=== PATIENT | female | born 1970 | race Caucasian/White ===

== ENCOUNTER 2023-03-01 12:01 | Inpatient (IN) | payer OTHER ==
[~2023-03-01] VITALS: Ht 165.1 cm; Wt 92.0 kg
[2023-03-01] MEDS ORDERED: SODIUM CHLORIDE 0.9% 1,000 ML IV ONE (13:00)
[2023-03-01] MEDS ORDERED: KETOROLAC TROMETHAMINE 30 MG/ML VIAL IVP ONE (13:00)
[2023-03-01 13:04] LABS: BASOPHILS % (AUTO) 0.2 % (0.0-2.0); EOSINOPHILS % (AUTO) 0.3 % (1.0-6.0); HEMOGLOBIN 10.8 g/dL (12.0-16.0); LYMPHOCYTES # (AUTO) 1.2 K/uL (1.0-4.8); LYMPHOCYTES % (AUTO) 9.5 % (22.0-44.0); MEAN CORPUSCULAR HGB CONC 33.6 G/dL (31.0-37.0); MEAN CORPUSCULAR VOLUME 101 fL (80-100); MONOCYTES # (AUTO) 0.6 K/uL (0.1-1.0); MONOCYTES % (AUTO) 5.1 % (2.0-9.0); NEUTROPHILS # (AUTO) 10.6 K/uL (1.8-7.7); NEUTROPHILS % (AUTO) 84.9 % (40.0-70.0); PLATELET COUNT (AUTO) 328 K/uL (150-450); RED BLOOD CELL COUNT(AUTO) 3.17 MIL/uL (4.00-5.20)
[2023-03-01 13:21] LABS: ALANINE AMINOTRANSFERASE 34 U/L (12-78); ALBUMIN 2.7 g/dL (3.4-5.0); ALKALINE PHOSPHATASE 292 U/L (46-116); ANION GAP 7 mmol/L (8-16); ASPARTATE AMINOTRANSFERASE 21 U/L (15-37); BILIRUBIN,TOTAL 0.5 mg/dL (0.1-1.0); CALCIUM, TOTAL 8.6 mg/dL (8.8-10.5); CARBON DIOXIDE 39 mmol/L (22-29); CHLORIDE 96 mmol/L (98-107); CREATININE 0.81 mg/dL (0.60-1.30); GLOMERULAR FILTR. RATE CALC > 60 mL/min (>60); GLUCOSE,RANDOM 251 mg/dL (70-110); SODIUM SERUM 142 mmol/L (136-145)
[2023-03-01 13:22] LABS: POTASSIUM 2.3 mmol/L (3.5-5.1)
[2023-03-01] MEDS ORDERED: POTASSIUM CHLORIDE 20 MEQ ER TABLET PO PRN (13:30)
[2023-03-01] MEDS ORDERED: POTASSIUM CHL 10 MEQ/WATER 50 ML IV PRN ×2 (13:30→18:45)
[2023-03-01] MEDS ORDERED: ACETAMINOPHEN 325 MG TABLET PO PRN ×2 (14:45→18:45)
[2023-03-01] MEDS ORDERED: ONDANSETRON HCL 4 MG/2 ML VIAL IVP PRN ×2 (14:45→18:45)
[2023-03-01] MEDS ORDERED: BISACODYL 10 MG RECTAL RECTAL SUPPOSITORY PR PRN (18:45)
[2023-03-01] MEDS ORDERED: MAGNESIUM SULFATE 4 GM/WATER 100 ML IV PRN (18:45)
[2023-03-01] MEDS ORDERED: MAGNESIUM HYDROXIDE SUSPENSION 30 ML UDCUP PO PRN (18:45)
[2023-03-01] MEDS ORDERED: MAGNESIUM SULFATE 2 GM/WATER 50 ML IV PRN (18:45)
[2023-03-01] MEDS ORDERED: IPRATROPIUM BROMIDE 0.5 MG/2.5 ML NEB SOLUTION NEB PRN (18:45)
[2023-03-01] MEDS ORDERED: ALBUTEROL SULFATE 2.5 MG/0.5 ML NEB SOLUTION NEB PRN (18:45)
[2023-03-01] MEDS ORDERED: MAGNESIUM OXIDE 400 MG TABLET PO PRN (18:45)
[2023-03-01] MEDS ORDERED: INSU100V SQ (19:04)
[2023-03-01] MEDS ORDERED: LEVO125 PO (19:04)
[2023-03-01] MEDS ORDERED: INSLAN SQ (19:04)
[2023-03-01] MEDS ORDERED: HYDR200T83 PO (19:04)
[2023-03-01] MEDS ORDERED: HYDR20TA24 PO (19:05)
[2023-03-01] MEDS ORDERED: METO25TA3 PO (19:05)
[2023-03-01] MEDS: POTASSIUM CHLORIDE 20 MEQ ER TABLET PO PRN (20:33)
[2023-03-01] MEDS: HYDROCODONE/ACETAMINOPHEN 5-325 MG TABLET PO PRN (20:33)
[2023-03-01] MEDS: HYDROCORTISONE 10 MG TABLET PO SCH (20:35)
[2023-03-01 20:39] VITALS: BP 127/72; PULSE 59; RESP 18; TEMP 97.5
[2023-03-01] MEDS: DOCUSATE SODIUM 100 MG CAPSULE PO SCH (21:00)
[2023-03-01] MEDS ORDERED: DEXTROSE 50%-WATER 25 GM/50 ML SYRINGE IVP PRN (21:00)
[2023-03-01] MEDS: INSULIN LISPRO 100 UNITS/ML SQ PRN (21:06)
[2023-03-01 23:40] VITALS: BP 133/74; PULSE 53; RESP 18; TEMP 98.2
[2023-03-02] MEDS: HEPARIN SODIUM,PORCINE 5,000 UNITS/ML VIAL SQ SCH ×3 (00:12→17:37)
[2023-03-02] MEDS: MORPHINE SULFATE 2 MG/ML SYRINGE IVP PRN ×2 (00:28→12:10)
[2023-03-02] MEDS: ZOLPIDEM TARTRATE 5 MG TABLET PO PRN ×2 (01:40→20:28)
[2023-03-02] MEDS: POTASSIUM CHLORIDE 20 MEQ ER TABLET PO PRN ×3 (02:22→17:44)
[2023-03-02 04:11] VITALS: BP 120/64; PULSE 45; RESP 18; TEMP 98.9
[2023-03-02 05:16] LABS: GLUCOMETER DEV NAME(LOC) 5S.1B
[2023-03-02 05:16] LABS: GLUCOMETER DEV NAME(LOC) 5S.1B
[2023-03-02] MEDS: LEVOTHYROXINE SODIUM 100 MCG TABLET PO SCH (06:37)
[2023-03-02] MEDS: LEVOTHYROXINE SODIUM 75 MCG TABLET PO SCH (06:37)
[2023-03-02] MEDS: INSULIN LISPRO 100 UNITS/ML SQ PRN ×4 (06:38→20:28)
[2023-03-02 07:39] LABS: POTASSIUM 2.8 mmol/L (3.5-5.1)
[2023-03-02 07:44] VITALS: BP 133/78; PULSE 55; PULSE 71; RESP 18; TEMP 98.6
[2023-03-02] MEDS: PANTOPRAZOLE SODIUM 40 MG/VIAL IVP SCH (08:31)
[2023-03-02] MEDS: HYDROCORTISONE 10 MG TABLET PO SCH ×3 (08:32→20:21)
[2023-03-02] MEDS: HYDROCODONE/ACETAMINOPHEN 5-325 MG TABLET PO PRN (08:33)
[2023-03-02] MEDS: METOPROLOL SUCCINATE 25 MG ER TABLET PO SCH (08:49)
[2023-03-02] MEDS: DOCUSATE SODIUM 100 MG CAPSULE PO SCH ×2 (08:50→21:00)
[2023-03-02 11:13] VITALS: BP 117/71; PULSE 84; RESP 16; TEMP 98.8
[2023-03-02] MEDS: HYDROXYCHLOROQUINE SULFATE 200 MG TABLET PO SCH (12:55)
[2023-03-02 14:09] LABS: ANION GAP 3 mmol/L (8-16); CALCIUM, TOTAL 7.9 mg/dL (8.8-10.5); CARBON DIOXIDE 38 mmol/L (22-29); CHLORIDE 98 mmol/L (98-107); GLOMERULAR FILTR. RATE CALC > 60 mL/min (>60); GLUCOSE,RANDOM 211 mg/dL (70-110); POTASSIUM 3.3 mmol/L (3.5-5.1); SODIUM SERUM 139 mmol/L (136-145)
[2023-03-02 14:10] LABS: BASOPHILS % (AUTO) 0.5 % (0.0-2.0); EOSINOPHILS % (AUTO) 0.2 % (1.0-6.0); HEMATOCRIT 33.3 % (36-46); HEMOGLOBIN 11.2 g/dL (12.0-16.0); LYMPHOCYTES # (AUTO) 1.5 K/uL (1.0-4.8); LYMPHOCYTES % (AUTO) 17.4 % (22.0-44.0); MEAN CORPUSCULAR HEMOGLOBIN 34.4 pg (26.0-34.0); MEAN CORPUSCULAR HGB CONC 33.6 G/dL (31.0-37.0); MEAN CORPUSCULAR VOLUME 103 fL (80-100); MONOCYTES # (AUTO) 0.5 K/uL (0.1-1.0); MONOCYTES % (AUTO) 5.8 % (2.0-9.0); NEUTROPHILS # (AUTO) 6.7 K/uL (1.8-7.7); NEUTROPHILS % (AUTO) 76.1 % (40.0-70.0); PLATELET COUNT (AUTO) 329 K/uL (150-450); RED BLOOD CELL COUNT(AUTO) 3.25 MIL/uL (4.00-5.20); RED CELL DISTRIBUTION WIDTH 17.2 % (11.5-14.5)
[2023-03-02 14:15] LABS: ALANINE AMINOTRANSFERASE 29 U/L (12-78); ALBUMIN 2.5 g/dL (3.4-5.0); ALKALINE PHOSPHATASE 274 U/L (46-116); ASPARTATE AMINOTRANSFERASE 20 U/L (15-37); BILIRUBIN,TOTAL 0.2 mg/dL (0.1-1.0); TOTAL PROTEIN, SERUM 5.7 g/dL (6.4-8.2)
[2023-03-02 14:16] LABS: GLUCOMETER DEV NAME(LOC) 5N.2C
[2023-03-02 14:16] LABS: GLUCOMETER DEV NAME(LOC) 5S.1B
[2023-03-02] MEDS: OxyCODONE HCL 5 MG IR TABLET PO PRN (14:42)
[2023-03-02 18:26] LABS: GLUCOMETER DEV NAME(LOC) 5S.1B
[2023-03-02 19:30] VITALS: BP 133/83; PULSE 78; RESP 18; TEMP 97.9
[2023-03-02] MEDS: MORPHINE SULFATE 15 MG ER TABLET PO SCH (20:21)
[2023-03-02 21:36] LABS: GLUCOMETER DEV NAME(LOC) 5N.1C
[2023-03-03] MEDS: HEPARIN SODIUM,PORCINE 5,000 UNITS/ML VIAL SQ SCH ×4 (00:02→23:07)
[2023-03-03] MEDS: OxyCODONE HCL 5 MG IR TABLET PO PRN ×5 (00:02→22:42)
[2023-03-03 00:36] VITALS: BP 148/80; PULSE 62; RESP 20; TEMP 98.3
[2023-03-03 00:53] LABS: APPEARANCE,URINE CLEAR (CLEAR); BILIRUBIN,URINE NEGATIVE (NEGATIVE); GLUCOSE, URINE (UA) NEGATIVE (NEGATIVE); KETONES,URINE NEGATIVE (NEGATIVE); LEUKOCYTE ESTERASE ,URINE NEGATIVE (NEGATIVE); NITRATE,URINE NEGATIVE (NEGATIVE); OCCULT BLOOD,URINE NEGATIVE (NEGATIVE); PROTEIN,URINE NEGATIVE (NEGATIVE); SPECIFIC GRAVITIY, URINE 1.008 (1.003-1.030); UROBILINOGEN,URINE <=1.0 mg/dL (<=1.0)
[2023-03-03 04:00] VITALS: BP 137/76; PULSE 70; RESP 18
[2023-03-03] MEDS: LEVOTHYROXINE SODIUM 75 MCG TABLET PO SCH (05:52)
[2023-03-03] MEDS: LEVOTHYROXINE SODIUM 100 MCG TABLET PO SCH (05:52)
[2023-03-03] MEDS: INSULIN LISPRO 100 UNITS/ML SQ PRN ×2 (06:08→17:47)
[2023-03-03 07:38] VITALS: BP 137/77; PULSE 55; RESP 18; TEMP 98
[2023-03-03] MEDS: PANTOPRAZOLE SODIUM 40 MG/VIAL IVP SCH (08:58)
[2023-03-03] MEDS: MORPHINE SULFATE 15 MG ER TABLET PO SCH ×2 (09:00→20:24)
[2023-03-03] MEDS: METOPROLOL SUCCINATE 25 MG ER TABLET PO SCH (09:00)
[2023-03-03] MEDS: DOCUSATE SODIUM 100 MG CAPSULE PO SCH ×2 (09:00→20:26)
[2023-03-03] MEDS: HYDROXYCHLOROQUINE SULFATE 200 MG TABLET PO SCH (09:01)
[2023-03-03] MEDS: HYDROCORTISONE 10 MG TABLET PO SCH ×3 (09:02→20:26)
[2023-03-03 10:41] LABS: GLUCOMETER DEV NAME(LOC) 5S.1B
[2023-03-03 10:41] LABS: GLUCOMETER DEV NAME(LOC) 5S.1B
[2023-03-03 11:44] VITALS: BP 143/85; PULSE 70; RESP 18; TEMP 98.1
[2023-03-03] MEDS ORDERED: LEVO200T10 PO (12:19)
[2023-03-03] MEDS ORDERED: MORP15TA9 PO (12:19)
[2023-03-03] MEDS ORDERED: OXYC10TA48 PO (12:19)
[2023-03-03] MEDS ORDERED: LISI10TA24 PO (12:19)
[2023-03-03] MEDS ORDERED: FURO20 PO (12:19)
[2023-03-03] MEDS ORDERED: INSU100I66 SQ (12:19)
[2023-03-03] MEDS ORDERED: GABA-529 PO (12:19)
[2023-03-03] MEDS ORDERED: FURO20TA4 PO (12:19)
[2023-03-03] MEDS ORDERED: METO-391 PO (12:19)
[2023-03-03] MEDS ORDERED: FUROSEMIDE 40 MG/4 ML VIAL IVP ONE (16:45)
[2023-03-03 19:35] VITALS: BP 148/93; PULSE 74; RESP 19; TEMP 98.7
[2023-03-03 20:26] LABS: GLUCOMETER DEV NAME(LOC) 5N.2C
[2023-03-03 20:26] LABS: GLUCOMETER DEV NAME(LOC) 5S.1B
[2023-03-03 22:06] LABS: GLUCOMETER DEV NAME(LOC) 5S.1B
[2023-03-03] MEDS: ZOLPIDEM TARTRATE 5 MG TABLET PO PRN (23:07)
[2023-03-03 23:47] VITALS: BP 144/88; PULSE 67; RESP 20; TEMP 98.5
[2023-03-04 05:28] VITALS: BP 152/85; PULSE 59; RESP 20; TEMP 98.5
[2023-03-04] MEDS: LEVOTHYROXINE SODIUM 100 MCG TABLET PO SCH (05:44)
[2023-03-04] MEDS: LEVOTHYROXINE SODIUM 75 MCG TABLET PO SCH (05:44)
[2023-03-04] MEDS: OxyCODONE HCL 5 MG IR TABLET PO PRN ×4 (06:13→22:54)
[2023-03-04] MEDS: INSULIN LISPRO 100 UNITS/ML SQ PRN ×4 (06:17→20:38)
[2023-03-04 06:25] LABS: GLUCOMETER DEV NAME(LOC) 5S.1B
[2023-03-04 07:27] LABS: BASOPHILS % (AUTO) 0.7 % (0.0-2.0); HEMATOCRIT 35.8 % (36-46); HEMOGLOBIN 12.2 g/dL (12.0-16.0); LYMPHOCYTES # (AUTO) 1.9 K/uL (1.0-4.8); LYMPHOCYTES % (AUTO) 20.6 % (22.0-44.0); MEAN CORPUSCULAR HEMOGLOBIN 34.7 pg (26.0-34.0); MEAN CORPUSCULAR VOLUME 102 fL (80-100); MONOCYTES # (AUTO) 0.6 K/uL (0.1-1.0); MONOCYTES % (AUTO) 6.8 % (2.0-9.0); NEUTROPHILS # (AUTO) 6.5 K/uL (1.8-7.7); NEUTROPHILS % (AUTO) 70.9 % (40.0-70.0); PLATELET COUNT (AUTO) 331 K/uL (150-450); RED CELL DISTRIBUTION WIDTH 17.5 % (11.5-14.5)
[2023-03-04 07:30] VITALS: BP 149/94; PULSE 83; RESP 19; TEMP 98.2
[2023-03-04 07:38] LABS: ALANINE AMINOTRANSFERASE 25 U/L (12-78); ALBUMIN 2.6 g/dL (3.4-5.0); ALKALINE PHOSPHATASE 281 U/L (46-116); ANION GAP 5 mmol/L (8-16); ASPARTATE AMINOTRANSFERASE 17 U/L (15-37); BILIRUBIN,TOTAL 0.3 mg/dL (0.1-1.0); CALCIUM, TOTAL 8.1 mg/dL (8.8-10.5); CARBON DIOXIDE 37 mmol/L (22-29); CHLORIDE 98 mmol/L (98-107); CREATININE 0.68 mg/dL (0.60-1.30); GLOMERULAR FILTR. RATE CALC > 60 mL/min (>60); GLUCOSE,RANDOM 162 mg/dL (70-110); POTASSIUM 3.5 mmol/L (3.5-5.1); SODIUM SERUM 140 mmol/L (136-145); TOTAL PROTEIN, SERUM 5.7 g/dL (6.4-8.2)
[2023-03-04] MEDS: PANTOPRAZOLE SODIUM 40 MG/VIAL IVP SCH (08:45)
[2023-03-04] MEDS: HEPARIN SODIUM,PORCINE 5,000 UNITS/ML VIAL SQ SCH ×3 (08:45→23:42)
[2023-03-04] MEDS: FUROSEMIDE 40 MG/4 ML VIAL IVP SCH (08:45)
[2023-03-04] MEDS: MORPHINE SULFATE 15 MG ER TABLET PO SCH ×2 (08:46→20:36)
[2023-03-04] MEDS: METOPROLOL SUCCINATE 25 MG ER TABLET PO SCH (08:46)
[2023-03-04] MEDS: DOCUSATE SODIUM 100 MG CAPSULE PO SCH ×2 (08:46→20:46)
[2023-03-04] MEDS: HYDROCORTISONE 10 MG TABLET PO SCH ×3 (08:46→20:36)
[2023-03-04] MEDS: HYDROXYCHLOROQUINE SULFATE 200 MG TABLET PO SCH (08:46)
[2023-03-04 11:28] VITALS: BP 141/96; PULSE 67; RESP 18; TEMP 98.8
[2023-03-04 16:34] VITALS: BP 143/92; PULSE 105; RESP 18; TEMP 98.5
[2023-03-04 20:15] VITALS: BP 142/93; PULSE 91; RESP 20; TEMP 98.5
[2023-03-04 20:56] LABS: GLUCOMETER DEV NAME(LOC) 5S.1B
[2023-03-04 20:56] LABS: GLUCOMETER DEV NAME(LOC) 5S.1B
[2023-03-04 20:56] LABS: GLUCOMETER DEV NAME(LOC) 5S.1B
[2023-03-04 22:30] VITALS: BP 145/97; PULSE 69; RESP 16; TEMP 98.5
[2023-03-04] MEDS: NYSTATIN 500,000 UNITS/5 ML SUSPENSION UDCUP PO SCH (23:40)
[2023-03-04] MEDS: ZOLPIDEM TARTRATE 5 MG TABLET PO PRN (23:43)
[2023-03-05 03:21] LABS: GLUCOMETER DEV NAME(LOC) 4E.2
[2023-03-05 05:00] VITALS: BP 136/89; PULSE 62; RESP 16; TEMP 98.4
[2023-03-05] MEDS: LEVOTHYROXINE SODIUM 75 MCG TABLET PO SCH (05:54)
[2023-03-05] MEDS: LEVOTHYROXINE SODIUM 100 MCG TABLET PO SCH (05:54)
[2023-03-05] MEDS: OxyCODONE HCL 5 MG IR TABLET PO PRN ×4 (06:24→20:16)
[2023-03-05 08:00] VITALS: BP 143/83; PULSE 68; RESP 20; TEMP 98.5
[2023-03-05] MEDS: PANTOPRAZOLE SODIUM 40 MG/VIAL IVP SCH (09:20)
[2023-03-05] MEDS: NYSTATIN 500,000 UNITS/5 ML SUSPENSION UDCUP PO SCH ×2 (09:20→15:28)
[2023-03-05] MEDS: HEPARIN SODIUM,PORCINE 5,000 UNITS/ML VIAL SQ SCH ×2 (09:21→15:25)
[2023-03-05] MEDS: HYDROXYCHLOROQUINE SULFATE 200 MG TABLET PO SCH (09:21)
[2023-03-05] MEDS: DOCUSATE SODIUM 100 MG CAPSULE PO SCH ×2 (09:21→20:15)
[2023-03-05] MEDS: FUROSEMIDE 40 MG/4 ML VIAL IVP SCH (09:21)
[2023-03-05] MEDS: METOPROLOL SUCCINATE 25 MG ER TABLET PO SCH (09:21)
[2023-03-05] MEDS: MORPHINE SULFATE 15 MG ER TABLET PO SCH ×2 (09:23→21:44)
[2023-03-05] MEDS: HYDROCORTISONE 10 MG TABLET PO SCH ×3 (10:36→20:16)
[2023-03-05] MEDS: INSULIN LISPRO 100 UNITS/ML SQ PRN ×4 (11:46→20:15)
[2023-03-05 15:06] LABS: GLUCOMETER DEV NAME(LOC) 6N.1
[2023-03-05 15:06] LABS: GLUCOMETER DEV NAME(LOC) 6N.1
[2023-03-05 15:14] VITALS: BP 128/73; PULSE 85; RESP 20; TEMP 98.6
[2023-03-05 18:16] LABS: GLUCOMETER DEV NAME(LOC) 4E.2
[2023-03-05 18:16] LABS: GLUCOMETER DEV NAME(LOC) 4E.2
[2023-03-05 18:16] LABS: GLUCOMETER DEV NAME(LOC) 6S.2
[2023-03-05 19:45] VITALS: BP 139/92; PULSE 89; RESP 20; TEMP 98.5
[2023-03-05 22:35] VITALS: BP 138/88; PULSE 64; RESP 20; TEMP 98.3
[2023-03-06] MEDS: NYSTATIN 500,000 UNITS/5 ML SUSPENSION UDCUP PO SCH ×2 (01:06→09:53)
[2023-03-06] MEDS: HEPARIN SODIUM,PORCINE 5,000 UNITS/ML VIAL SQ SCH ×2 (01:07→09:53)
[2023-03-06] MEDS: OxyCODONE HCL 5 MG IR TABLET PO PRN ×3 (01:10→12:12)
[2023-03-06 05:16] VITALS: BP 130/76; PULSE 70; RESP 20; TEMP 97.9
[2023-03-06] MEDS: LEVOTHYROXINE SODIUM 75 MCG TABLET PO SCH (05:19)
[2023-03-06] MEDS: LEVOTHYROXINE SODIUM 100 MCG TABLET PO SCH (05:19)
[2023-03-06] MEDS: INSULIN LISPRO 100 UNITS/ML SQ PRN ×2 (05:23→12:07)
[2023-03-06 06:41] LABS: GLUCOMETER DEV NAME(LOC) 6N.1
[2023-03-06 06:42] LABS: GLUCOMETER DEV NAME(LOC) 6N.1
[2023-03-06 06:56] VITALS: BP 138/88; PULSE 64; RESP 20; TEMP 98.3
[2023-03-06 07:34] VITALS: BP 152/87; PULSE 81; RESP 20; TEMP 98.8
[2023-03-06] MEDS: PANTOPRAZOLE SODIUM 40 MG/VIAL IVP SCH (09:00)
[2023-03-06] MEDS: FUROSEMIDE 40 MG/4 ML VIAL IVP SCH (09:00)
[2023-03-06] MEDS: DOCUSATE SODIUM 100 MG CAPSULE PO SCH (09:53)
[2023-03-06] MEDS: HYDROCORTISONE 10 MG TABLET PO SCH (09:53)
[2023-03-06] MEDS: MORPHINE SULFATE 15 MG ER TABLET PO SCH (09:53)
[2023-03-06] MEDS: METOPROLOL SUCCINATE 25 MG ER TABLET PO SCH (09:53)
[2023-03-06] MEDS: HYDROXYCHLOROQUINE SULFATE 200 MG TABLET PO SCH (10:05)
[2023-03-06] MEDS ORDERED: LORazepam 2 MG/ML VIAL IM ONE (12:45)
[2023-03-06 13:41] LABS: GLUCOMETER DEV NAME(LOC) 6N.2B
[2023-03-06] MEDS ORDERED: INSULIN GLARGINE,HUM.REC.ANLOG 100 UNITS/ML SQ SCH (21:00)
[2023-03-07] MEDS ORDERED: ALENDRONATE SODIUM 70 MG TABLET PO SCH (06:30)
== END 2023-03-06 15:55 | DRG 347 ==
LOC: EMS 12:03 → 5S 18:29 → 6S 03-04 20:32
PROVIDERS: ADMIT Hospitalist; ATTEND Hospitalist
DX: S32.049A Unspecified fracture of fourth lumbar vertebra, initial encounter for closed fracture (principal); E43 Unspecified severe protein-calorie malnutrition; E27.40 Unspecified adrenocortical insufficiency; E10.65 Type 1 diabetes mellitus with hyperglycemia; D64.9 Anemia, unspecified; E03.9 Hypothyroidism, unspecified; E87.6 Hypokalemia; I10 Essential (primary) hypertension; I87.8 Other specified disorders of veins; F11.20 Opioid dependence, uncomplicated; M81.0 Age-related osteoporosis without current pathological fracture; J44.9 Chronic obstructive pulmonary disease, unspecified; Z68.33 Body mass index [BMI] 33.0-33.9, adult; Z59.00 Homelessness unspecified; Z86.73 Personal history of transient ischemic attack (TIA), and cerebral infarction without residual deficits
CPT/HCPCS: 71045; 72131; 72148; 80053; 81003; 82040; 82962; 83735; 84132; 85025; 87040; 93306; 93970; 97116; 97162; 97167; 97530; 97535; 99285; C9113; J1644; J1815; J1885; J1940; J2060; J2270; J3480; J7030; 36415-L1; 36415-TC

== ENCOUNTER 2023-03-21 14:21 | Emergency (ER) | payer OTHER ==
[~2023-03-21] VITALS: Ht 165.1 cm; Wt 92.0 kg
[~2023-03-21 14:21] MED LIST: FURO20 PO; FURO20TA4 PO; GABA-529 PO; HYDR200T83 PO; HYDR20TA24 PO; INSLAN SQ; INSU100V SQ; LEVO200T10 PO; LISI10TA24 PO; METO-391 PO; MORP15TA9 PO; OXYC10TA48 PO
[2023-03-21 15:22] VITALS: TEMP 98.9
[2023-03-21] MEDS ORDERED: LIDOCAINE 5% TRANSDERMAL PATCH TD ONE (16:45)
[2023-03-21 17:20] VITALS: BP 131/90; PULSE 78; RESP 16
[2023-03-21 18:55] LABS: GLUCOMETER DEV NAME(LOC) ER.6
== END 2023-03-21 18:49 | disposition home or self-care (01) ==
LOC: EMS 14:25
DX: S32.592A Other specified fracture of left pubis, initial encounter for closed fracture (principal); S32.591A Other specified fracture of right pubis, initial encounter for closed fracture; J44.9 Chronic obstructive pulmonary disease, unspecified; E11.9 Type 2 diabetes mellitus without complications; I10 Essential (primary) hypertension; E03.9 Hypothyroidism, unspecified; Z98.890 Other specified postprocedural states; Z59.00 Homelessness unspecified; W19.XXXA Unspecified fall, initial encounter; Y93.89 Activity, other specified; Y92.89 Other specified places as the place of occurrence of the external cause; Y99.8 Other external cause status
CPT/HCPCS: 71046; 73521; 82962; 99284